=== PATIENT | male | born 1945 | race Caucasian/White ===

== ENCOUNTER 2022-10-22 16:36 | Observation (INO) | payer OTHER ==
[2022-10-22 16:40] VITALS: BMI 27.8
[2022-10-22 17:51] LABS: EOS % 2.4 % (0-4.5); HEMATOCRIT 41.3 % (35.4-49); LYMPH % 34.3 % (8-40); MCH 29.5 pg (25.7-33.7); MEAN CELL VOLUME 86.7 fl (80-96); MEAN PLT VOLUME 8.4 fl (7.5-11.1); MONO % 7.5 % (3.8-10.2); NEUT % 54.8 % (42.8-82.8); PLATELET COUNT 152 10^3/uL (134-434); RBC 4.76 M/mm3 (4.00-5.60); WHITE BLOOD COUNT 5.1 K/mm3 (4.0-10.0)
[2022-10-22 18:17] LABS: ALBUMIN 3.9 g/dl (3.4-5.0); BLOOD UREA NITROGEN 22.8 mg/dL (7-18); CALCIUM 8.3 mg/dL (8.5-10.1)
[2022-10-22 18:20] LABS: CREATININE 1.4 mg/dL (0.55-1.3)
[2022-10-22 18:22] LABS: BILIRUBIN,TOTAL 0.4 mg/dL (0.2-1); TOT PROT 6.8 g/dl (6.4-8.2)
[2022-10-22] MEDS ORDERED: ASPIRIN 81 MG CHEWABLE TABLETS PO ONE (21:54)
[2022-10-22] MEDS ORDERED: ASPIRIN 81 MG CHEWABLE TABLETS ONE (22:39)
[2022-10-23 06:16] LABS: BASO % 0.7 % (0-2.0); HEMATOCRIT 40.4 % (35.4-49); HEMOGLOBIN 13.7 GM/dL (11.7-16.9); LYMPH % 38.1 % (8-40); MEAN CELL VOLUME 85.4 fl (80-96); MEAN PLT VOLUME 8.5 fl (7.5-11.1); MONO % 7.6 % (3.8-10.2); NEUT % 51.6 % (42.8-82.8); PLATELET COUNT 136 10^3/uL (134-434); RBC 4.73 M/mm3 (4.00-5.60); RDW 13.9 % (11.9-15.9); WHITE BLOOD COUNT 5.1 K/mm3 (4.0-10.0)
[2022-10-23 06:47] LABS: CALCIUM 8.3 mg/dL (8.5-10.1)
[2022-10-23 06:48] LABS: ALBUMIN 3.8 g/dl (3.4-5.0); BLOOD UREA NITROGEN 19.8 mg/dL (7-18); MAGNESIUM 2.3 mg/dL (1.8-2.4)
[2022-10-23 06:51] LABS: CREATININE 1.3 mg/dL (0.55-1.3)
[2022-10-23 06:52] LABS: BILIRUBIN,TOTAL 0.5 mg/dL (0.2-1); TOT PROT 6.6 g/dl (6.4-8.2)
[2022-10-23 09:48] VITALS: RESP 18
[2022-10-23] MEDS ORDERED: REGADENOSON 0.4 MG/5 ML PRE-FILLED SYRINGE IVPUSH ONE ×2 (10:12→10:30)
[2022-10-23] MEDS: ASPIRIN 81 MG CHEWABLE TABLETS PO SCH (15:51)
[2022-10-23] MEDS ORDERED: ROSUVASTATIN CA 10 MG TABLET PO SCH (22:00)
[2022-10-24 03:22] VITALS: TEMP 97.8
[2022-10-24 06:26] VITALS: BP 114/60; PULSE 65
[2022-10-24] MEDS ORDERED: METOPROLOL TARTRATE 25 MG TABLET (FP) PO SCH (10:00)
[2022-10-24] MEDS: ASPIRIN 81 MG CHEWABLE TABLETS PO SCH (10:27)
== END 2022-10-24 10:40 | disposition home or self-care (01) ==
LOC: JER 16:36 → JERBED 20:42 → J4W 10-23 09:40
PROVIDERS: ADMIT Internal Medicine; ATTEND Family Medicine
PROC: 3E033GC Introduction of Other Therapeutic Substance into Peripheral Vein, Percutaneous Approach (ICD-10-PCS; principal; 2022-10-22)
DX: N17.9 Acute kidney failure, unspecified (principal); R07.9 Chest pain, unspecified; E78.5 Hyperlipidemia, unspecified; I10 Essential (primary) hypertension; R60.0 Localized edema; D47.2 Monoclonal gammopathy
CPT/HCPCS: 0241U-QW; 36415; 71045-TC-FY; 78452-TC; 80053; 80061; 83735; 84443; 84484; 85025; 85379; 93005; 93010; 93017; 93306-TC; 93970-TC; 96374; 99285-25; A9502; G0378; J2785